=== PATIENT | female | born 1960 | race Caucasian/White ===

== ENCOUNTER → 2021-04-09 | Day surgery (SDC) | payer OTHER ==
[~2021-04-09] VITALS: Ht 172.7 cm; Wt 110.0 kg
[~2021-04-09] MED LIST: CRESTOR5 MG PO; IV RINGERS,LACTATED 1000ML 1,000 ML IV SCH; LIDOCAINE 2% PF 5 ML VIAL. ONE; METO25TA2 PO; PHEN16.287 PO; PROPOFOL 10 MG/ML (20ML) VIAL. IV ONE
--- NOTE | 2021-04-09 11:03 | PREOP HP ---
DATE OF SERVICE: 04/09/2021 REQUESTING PHYSICIAN: Kristan Valerio MD PRIMARY CARE PHYSICIAN: Kristan Valerio MD REASON FOR PROCEDURE: Dysphagia and history of Cortez's. HISTORY OF PRESENT ILLNESS: This is a 61-year-old female who presents today for an upper endoscopy. She has a history of Cortez's esophagus in the past as well as some dysphagia. ALLERGIES: No known drug allergies. MEDICATIONS: MAR reviewed. REVIEW OF SYSTEMS: A 13-point review of systems was done, it is positive as per HPI and otherwise negative. PHYSICAL EXAMINATION: VITAL SIGNS: She is afebrile and her vital signs are stable. GENERAL: She is a well-developed, well-nourished female in no apparent distress. HEENT: Oropharynx is clear. CARDIOVASCULAR: S1, S2. LUNGS: Clear. ABDOMEN: Normoactive bowel sounds, soft, nontender, nondistended. EXTREMITIES: No edema. NEUROLOGIC: Awake, alert and oriented x 3. ASSESSMENT AND PLAN: 1. History of Cortez's esophagus. She will undergo upper endoscopy for further evaluation. 2. Dysphagia. Plan to dilate her esophagus if indicated. The risks and benefits of the procedures including bleeding, perforation, non-diagnosis and sedation were explained and she has agreed to proceed. NEETU DR: Art TID: [id number]
[2021-04-09 11:12] VITALS: BP 149/87
--- NOTE | 2021-04-13 18:06 | PATHOLOGY ---
[facility] Accession Number: [id number] . 01 Material submitted: . PART A: small bowel - SMALL BOWEL BIOPSY PART B: stomach - ANTRUM/BODY BIOPSY PART C: esophagus - DISTAL ESOPHAGUS BIOPSY. Modifiers: distal PART D: esophagus - MID ESOPHAGUS BIOPSY. Modifiers: mid . 01 Clinical history: . GERD EGD . 02 Diagnosis: A. Small bowel biopsy: - No diagnostic abnormalities. . B. Gastric biopsy, gastric antrum/body: - Congestion and slight chronic inflammation. . C. Esophageal biopsy, distal esophagus: - Reflux changes. . D. Esophageal biopsy, mid esophagus: - No diagnostic abnormalities. (JPM:pit; 04/13/2021) [facility] 04/13/2021 1337 Local . 02 Comment: Sections of the small bowel biopsy reveal segments of duodenal mucosa. containing a few mucosal-associated lymphoid aggregates. Where best oriented, the mucosal villi show no sprue-like changes or significant inflammatory changes. . Sections of the gastric biopsy reveal segments of gastric antral and gastric body mucosa showing congestion and slight chronic inflammation. A properly controlled immunoperoxidase stain for Helicobacter is negative for Helicobacter organisms. . Sections of the distal esophageal biopsy reveal segments of mildly hyperplastic squamous esophageal mucosa and gastric mucosa showing mild chronic inflammation. The findings are consistent with reflux changes. There is no evidence of Cortez's change, dysplasia, or malignancy. . Sections of the middle esophageal biopsy reveal a segment of squamous esophageal mucosa showing no diagnostic abnormalities. (JPM:pit; 04/13/2021) . Special stain performed: Immunoperoxidase for Helicobacter on Electronically signed: . Jay Dennis MD, Pathologist NPI- [id number] . 01 Gross description: . A. Received in formalin labeled "Cat Sahu, small bowel biopsy" are multiple fragments of dela cruz-brown soft tissue measuring in aggregate 1.4 x 0.5 x 0.3 cm. The specimen is submitted entirely in A1. . B. Received in formalin labeled "Cat Sahu antrum/body biopsy" are multiple fragments of dela cruz-brown soft tissue measuring in aggregate 1.4 x 0.5 x 0.3 cm. The specimen is submitted entirely in B1. . C. Received in formalin labeled "Cat Sahu distal esophagus biopsy" is a fragment of dela cruz-brown soft tissue measuring 0.6 x 0.4 x 0.3 cm. The specimen is submitted entirely in C1. . D. Received in formalin labeled "Cat Sahu mid esophagus biopsy" is a fragment of dela cruz-brown soft tissue measuring 0.7 x 0.4 x 0.3 cm. The specimen is submitted entirely in D1. ([facility]; 04/10/2021) . GZA/GZA 04/10/2021 0911 Local . 02 Pathologist provided ICD-10: K29.50, K21.00 . 02 CPT . 176563, 877716, 494605, 287032, [id number] Specimen Comment: A courtesy copy of this report has been sent to [phone], [phone] Specimen Comment: [id number] Specimen Comment: Report sent to / DR TURNER Performed at: 01 [facility] [address], [place] [id number] MD Bob Arreola MD Phone: [phone] Performed at: 02 [facility] [address] [place], [place] [id number] MD Jay Dennis MD Phone: [phone]
== END | disposition home or self-care (01) ==
LOC: ENDOS 08:06
PROVIDERS: ATTEND Internal Medicine Gastroenterology
DX: R13.10 Dysphagia, unspecified (principal); K22.70 Barrett's esophagus without dysplasia; K21.00 Gastro-esophageal reflux disease with esophagitis, without bleeding; K29.50 Unspecified chronic gastritis without bleeding; K31.89 Other diseases of stomach and duodenum; I10 Essential (primary) hypertension; E78.00 Pure hypercholesterolemia, unspecified; G47.30 Sleep apnea, unspecified; F41.9 Anxiety disorder, unspecified; F32.9 Major depressive disorder, single episode, unspecified; Z79.899 Other long term (current) drug therapy; Z90.49 Acquired absence of other specified parts of digestive tract; Z98.890 Other specified postprocedural states
CPT/HCPCS: 43239; 43450; J2704; 88305; 88342